=== PATIENT | male | born 1950 | race Caucasian/White ===

== ENCOUNTER → 2020-02-20 | Outpatient (CLI) | payer BC, MEDICARE ==
[~2020-02-20] MED LIST: CLOP75TA4 PO; FAMO20TA8 PO; HYDR-4134 PO; HYDR8TAB18 PO; LEVO75TA7 PO; METO-539 PO; PROT40 PO; [UNRECOGNIZED DRUG - CODE] PO
== END | disposition home or self-care (01) ==
LOC: LAB 13:41
PROVIDERS: ATTEND Internal Medicine Gastroenterology
DX: Z01.812 Encounter for preprocedural laboratory examination (principal); Z20.828 Contact with and (suspected) exposure to other viral communicable diseases
CPT/HCPCS: C9803; U0003

== ENCOUNTER → 2020-02-22 | Day surgery (SDC) | payer BC, MEDICARE ==
[~2020-02-22] VITALS: Ht 170.2 cm; Wt 63.5 kg
[~2020-02-22] MED LIST changes: +HYDROMORPHONE HCL/PF 2MG/ML CPJ IV PRN; +LABETALOL 5MG/ML SYR 20 MG/4 ML SYRINGE IV PRN; +LACTATED RINGERS 1,000 ML IV SCH; +LIDOCAINE HCL/PF 2% 20MG/ML 5 ML/VIAL ONE; +MEPERIDINE HCL/PF 25MG/ML CPJ IV PRN; +ONDANSETRON HCL 4MG/2ML INJ IV PRN; +PROPOFOL 200MG/20ML VIAL IV ONE
[2020-02-22 11:22] VITALS: BP 146/80
== END | disposition home or self-care (01) ==
LOC: OR 07:45
PROVIDERS: ATTEND Internal Medicine Gastroenterology
DX: R13.19 Other dysphagia (principal); K22.2 Esophageal obstruction; K31.7 Polyp of stomach and duodenum; K29.50 Unspecified chronic gastritis without bleeding; K31.89 Other diseases of stomach and duodenum; K21.9 Gastro-esophageal reflux disease without esophagitis; E66.9 Obesity, unspecified; I10 Essential (primary) hypertension; I25.10 Atherosclerotic heart disease of native coronary artery without angina pectoris; E78.00 Pure hypercholesterolemia, unspecified; E03.9 Hypothyroidism, unspecified; Z79.899 Other long term (current) drug therapy; Z98.890 Other specified postprocedural states; Z88.0 Allergy status to penicillin; Z88.8 Allergy status to other drugs, medicaments and biological substances
CPT/HCPCS: 43239; 43249; 93005; J2175; J2405; J2704; J3490; 88305; 88313

== ENCOUNTER 2020-04-21 07:25 | Emergency (ER) | payer BC, MEDICARE ==
[~2020-04-21] VITALS: Ht 170.2 cm; Wt 63.0 kg
[~2020-04-21 07:25] MED LIST changes: +CLOP-31 PO; -CLOP75TA4 PO; -HYDROMORPHONE HCL/PF 2MG/ML CPJ IV PRN; -LABETALOL 5MG/ML SYR 20 MG/4 ML SYRINGE IV PRN; -LACTATED RINGERS 1,000 ML IV SCH; -LIDOCAINE HCL/PF 2% 20MG/ML 5 ML/VIAL ONE; -MEPERIDINE HCL/PF 25MG/ML CPJ IV PRN; -ONDANSETRON HCL 4MG/2ML INJ IV PRN; -PROPOFOL 200MG/20ML VIAL IV ONE
[2020-04-21 08:00] VITALS: BP 124/63
[2020-04-21 08:30] LABS: CHLORIDE 107 mEq/L (98-107)
[2020-04-21 08:33] LABS: BASOPHILS % 0.4 % (0.0-2.0); EOSINOPHILS % 3.1 % (0.0-5.0); HEMATOCRIT. 33.3 % (42.0-52.0); HEMOGLOBIN. 10.7 g/dL (14.0-18.0); LYMPHOCYTES % 9.1 % (20.0-50.0); MEAN CORPUSCULAR HEMOGLOBIN 25.2 pg (28.0-32.0); MEAN CORPUSCULAR VOLUME 78.3 fL (80.0-94.0); MEAN PLATELET VOLUME 7.7 fl (7.4-10.4); MONOCYTES % 5.5 % (2.0-8.0); NEUTROPHILS % 81.9 % (40.0-76.0); PLATELET 372 x1000/uL (130-400); RED BLOOD CELL COUNT 4.25 mill/uL (4.7-6.1); RED CELL DISTRIBUTION WIDTH 20.6 % (11.6-14.6)
[2020-04-21 08:34] LABS: PROTHROMBIN TIME 10.2 sec (9.6-11.0)
[2020-04-21] MEDS ORDERED: SODIUM CHLORIDE 0.9% 1,000 ML IV ONE (09:00)
[2020-04-21] MEDS ORDERED: MIDAZOLAM HCL 2 MG/2 ML VIAL ONE ×3 (10:39→11:02)
[2020-04-21] MEDS ORDERED: FENTANYL CITRATE/PF 50MCG/ML 2ML VIAL ONE ×2 (10:39→11:08)
[2020-04-21] MEDS ORDERED: DIPHENHYDRAMINE 50MG/ML VIAL ONE (10:40)
[2020-04-21] MEDS ORDERED: PROPOFOL 200MG/20ML VIAL IV ONE (10:45)
== END 2020-04-21 10:20 | disposition home or self-care (01) ==
LOC: ER 07:25
PROC: 0D748ZZ Dilation of Esophagogastric Junction, Via Natural or Artificial Opening Endoscopic (ICD-10-PCS; principal; 2020-04-21)
PROC: 07D Lymphatic and Hemic Systems, Extraction (ICD-10-PCS; 2020-04-21)
DX: R13.10 Dysphagia, unspecified (principal); E03.9 Hypothyroidism, unspecified; I10 Essential (primary) hypertension; Z88.0 Allergy status to penicillin; Z88.8 Allergy status to other drugs, medicaments and biological substances; Z79.899 Other long term (current) drug therapy; Z98.890 Other specified postprocedural states; Z20.822 Contact with and (suspected) exposure to COVID-19
CPT/HCPCS: 36415; 43242; 43249; 80053; 85025; 85610; 87426; 88172; 88305; 88313; 93005; 96360; 99285; J1200; J2250; J3010; J7030; Z7610; J2704

== ENCOUNTER → 2020-05-26 | Outpatient (CLI) | payer BC, MEDICARE ==
[~2020-05-26] MED LIST changes: -CLOP-31 PO
== END | disposition home or self-care (01) ==
LOC: LAB 08:16
PROVIDERS: ATTEND Internal Medicine Gastroenterology
DX: U07.1 COVID-19 (principal)
CPT/HCPCS: 87426

== ENCOUNTER → 2020-06-30 | Day surgery (SDC) | payer BC, MEDICARE ==
[~2020-06-30] VITALS: Ht 170.2 cm; Wt 59.4 kg
[~2020-06-30] MED LIST changes: +ALIR75PE SQ; +CLOP-31 PO; +HYDR8TAB2 PO; +HYDROMORPHONE HCL/PF 2MG/ML (OR) ONE; +HYDROMORPHONE HCL/PF 2MG/ML CPJ IV PRN; +LABETALOL 5MG/ML SYR 20 MG/4 ML SYRINGE IV PRN; +LACTATED RINGERS 1,000 ML IV SCH; +MEPERIDINE HCL/PF 25MG/ML CPJ IV PRN; +NALOXONE HCL 0.4 MG/ML 1ML VIAL IV PRN; +ONDANSETRON HCL 4MG/2ML INJ IV PRN; +POLY17PO3 PO; +PROPOFOL 200MG/20ML VIAL IV ONE
[2020-06-30 10:47] LABS: BASOPHILS % 0.3 % (0.0-2.0); HEMATOCRIT. 28.7 % (42.0-52.0); HEMOGLOBIN. 9.1 g/dL (14.0-18.0); MEAN CORPUSCULAR HEMOGLOBIN 25.1 pg (28.0-32.0); MEAN CORPUSCULAR VOLUME 79.1 fL (80.0-94.0); MEAN PLATELET VOLUME 7.7 fl (7.4-10.4); MONOCYTES % 8.7 % (2.0-8.0); PLATELET 280 x1000/uL (130-400); RED BLOOD CELL COUNT 3.63 mill/uL (4.7-6.1); RED CELL DISTRIBUTION WIDTH 20.9 % (11.6-14.6)
[2020-06-30 11:01] LABS: PARTIAL THROMBOPLASTIN TIME 26.6 sec (23.4-31.0); PROTHROMBIN TIME 10.4 sec (9.6-11.0)
== END | disposition home or self-care (01) ==
LOC: OR 08:26
PROVIDERS: ATTEND Internal Medicine Gastroenterology
DX: K22.2 Esophageal obstruction (principal); R13.10 Dysphagia, unspecified; K31.89 Other diseases of stomach and duodenum; K21.9 Gastro-esophageal reflux disease without esophagitis; I25.10 Atherosclerotic heart disease of native coronary artery without angina pectoris; I10 Essential (primary) hypertension; E78.00 Pure hypercholesterolemia, unspecified; Z79.899 Other long term (current) drug therapy; Z98.890 Other specified postprocedural states; Z88.0 Allergy status to penicillin; Z88.8 Allergy status to other drugs, medicaments and biological substances
CPT/HCPCS: 36415; 43249; 80048; 85025; 85610; 85730; 87426; 93005; J1170; J2704